=== PATIENT | female | born 1980 | race Two or more races ===

== ENCOUNTER 2018-08-18 08:22 | Day surgery (SDC) | payer OTHER | END 2018-08-18 13:30 | disposition home or self-care (01) | LOC: AMB-ENDOS 08:22 | DX: N82.3 Fistula of vagina to large intestine (principal) ==

== ENCOUNTER → 2022-07-01 08:00 | Outpatient (CLI) | payer OTHER ==
[~2022-07-01] VITALS: Ht 167.6 cm; Wt 68.0 kg
[~2022-07-01 08:00] MED LIST: CIPRO500 MG PO; CLARITIN5 MG PO; FAMOTIDINE40 MG; FLONASE16 GM; INTESTINEX680 M1 PO; LEVOFLOXACIN5 ML; METRONIDAZOLE500 MG PO; MULTIPLE VITAM1 EAC2 PO; ULTRAM50 MG PO
== END | disposition home or self-care (01) ==
LOC: LAB 08:00 → EDSTATUS 07-06 10:30 → SURH 07-06 10:30
PROVIDERS: ATTEND Surgery
DX: I10 Essential (primary) hypertension (principal); N82.3 Fistula of vagina to large intestine; K58.9 Irritable bowel syndrome, unspecified; R15.2 Fecal urgency; Z03.818 Encounter for observation for suspected exposure to other biological agents ruled out; Z20.822 Contact with and (suspected) exposure to COVID-19

== ENCOUNTER 2022-08-19 11:09 | Inpatient (IN) | payer OTHER ==
[~2022-08-19] VITALS: Ht 167.6 cm; Wt 71.7 kg
[~2022-08-19 11:09] MED LIST changes: -LEVOFLOXACIN5 ML
--- NOTE | 2022-08-19 11:24 | NUR ---
PACIENTE ALERTA Y ORIENTADA POR VISHNU. PACIENTE CON REFERIDO DE DRA Daryl BACK POR PROBLEMA EN FISTULA ANOVAGINAL LA CUAL SE ENCUENTRA DRENADO SECRECIONES. REFIERE FUE OPERADA EL .
[2022-08-19] MEDS ORDERED: LEVOFLOXACIN5 ML (11:30)
[2022-08-21] MEDS ORDERED: ULTRAM50 MG PO (13:10)
== END 2022-08-21 16:44 | disposition home or self-care (01) | DRG 331 ==
LOC: ER 11:09 → SURG 13:32 → SURH 13:32
PROVIDERS: ADMIT Surgery; ATTEND Surgery
PROC: 0D1B4Z4 Bypass Ileum to Cutaneous, Percutaneous Endoscopic Approach (ICD-10-PCS; principal; 2022-08-19 15:00)
DX: N82.3 Fistula of vagina to large intestine (principal); N82.4 Other female intestinal-genital tract fistulae; Z20.822 Contact with and (suspected) exposure to COVID-19

== ENCOUNTER 2023-01-20 09:00 | Inpatient (IN) | payer OTHER ==
[~2023-01-20] VITALS: Ht 167.6 cm; Wt 68.0 kg
[~2023-01-20 09:00] MED LIST changes: +LEVOFLOXACIN5 ML
[2023-01-20] MEDS ORDERED: PROBIOTIC1 EAC4 PO (13:40)
[2023-01-20] MEDS ORDERED: MULTI VITAMIN1 EACH PO (13:41)
[2023-01-28] MEDS ORDERED: METRONIDAZOLE500 MG PO (07:52)
[2023-01-28] MEDS ORDERED: CIPRO500 MG PO (07:52)
[2023-01-28] MEDS ORDERED: PROTONIX40 MG PO (07:53)
== END 2023-01-28 10:02 | disposition home or self-care (01) | DRG 348 ==
LOC: EDSTATUS 09:00 → O/R 01-25 06:42 → SURH 01-25 08:30 → CIR.AMB 01-25 08:30 → EDSTATUS 01-25 09:00 → SURH 01-25 09:00
PROVIDERS: ADMIT Surgery; ATTEND Surgery
PROC: 0WQN0ZZ Repair Female Perineum, Open Approach (ICD-10-PCS; 2023-01-25)
PROC: 0DQR0ZZ Repair Anal Sphincter, Open Approach (ICD-10-PCS; 2023-01-25)
PROC: 3E0T3BZ Introduction of Anesthetic Agent into Peripheral Nerves and Plexi, Percutaneous Approach (ICD-10-PCS; 2023-01-25)
PROC: 0DBQ7ZZ Excision of Anus, Via Natural or Artificial Opening (ICD-10-PCS; principal; 2023-01-25 08:30)
DX: K60.3 Anal fistula (principal); N82.8 Other female genital tract fistulae; R15.9 Full incontinence of feces; K58.0 Irritable bowel syndrome with diarrhea; Z93.2 Ileostomy status

== ENCOUNTER 2023-06-23 06:13 | Day surgery (SDC) | payer OTHER ==
[2023-06-21 12:01] LABS: HEMATOCRIT 38.7 % (36.0-45.00); HEMOGLOBIN 12.5 g/dL (12.0-15.00); MEAN CELL VOLUME 90.3 fL (80.00-100.00); MEAN CORPUSCULAR HEMOGLOBIN 29.2 pg (27.00-32.0); MEAN CORPUSCULAR HGB CONC 32.3 g/dl (32.0-36.0); PLATELET COUNT 267 K/uL (150-450); RED BLOOD COUNT 4.28 M/uL (4.00-6.00); RED CELL DISTRIBUTION WIDTH 13.4 % (11.5-14.5)
[2023-06-21 12:29] LABS: INR 1.04; PARTIAL THROMBOPLASTIN TIME 27.8 SECONDS (22.0-34.0); PROTHROMBIN TIME 10.9 SECONDS (9.0-11.5)
[2023-06-21 12:38] LABS: ALBUMIN 3.6 gm/dL (3.4-5.0); BILIRUBIN TOTAL 0.47 mg/dL (0.3-1.2); CALCIUM 8.5 mg/dL (8.5-10.1); CREATININE SERUM 0.54 mg/dL (0.55-1.02); GFR 124.41; GLOBULINA 3.5 G/DL (2.4-3.5); POTASSIUM 4.15 mEq/L (3.5-5.1); TOTAL PROTEIN 7.1 gm/dL (6.4-8.2)
[~2023-06-23] VITALS: Ht 167.6 cm; Wt 70.3 kg
[~2023-06-23 06:13] MED LIST changes: +MULTI VITAMIN1 EACH PO; +PROBIOTIC1 EAC4 PO; +PROTONIX40 MG PO
== END 2023-06-23 17:15 | disposition home or self-care (01) ==
LOC: CIR.AMB 06:13
PROVIDERS: ATTEND Surgery
DX: N82.3 Fistula of vagina to large intestine (principal); K58.0 Irritable bowel syndrome with diarrhea; Z93.3 Colostomy status; I10 Essential (primary) hypertension; Z20.822 Contact with and (suspected) exposure to COVID-19; Z88.0 Allergy status to penicillin; Z88.6 Allergy status to analgesic agent

== ENCOUNTER 2023-11-29 08:30 | Inpatient (IN) | payer OTHER ==
[~2023-11-29] VITALS: Ht 167.6 cm; Wt 72.6 kg
[2023-11-29 11:57] LABS: URINE APPEARANCE Clear; URINE BILIRRUBIN Negative (NEGATIVE); URINE BLOOD Negative; URINE COLOR Yellow; URINE GLUCOSE Negative (NEGATIVE); URINE LEUKOCYTE Negative; URINE NITRATE Negative; URINE PROTEIN Negative (NEGATIVE); URINE UROBILINOGEN 0.2 E.U./dl
[2023-11-29 11:58] LABS: URINE BACTERIA 269.6 uL (0.0-1933); URINE EPITHELIAL CELLS 4.6 uL (0.0-38.8); URINE RBC 7.9 uL (0.0-20.8); URINE WBC 2.3 uL (0.0-23.2)
[2023-11-29 12:02] LABS: HEMATOCRIT 40.5 % (36.0-45.00); HEMOGLOBIN 13.8 g/dL (12.0-15.00); MEAN CELL VOLUME 91.1 fL (80.00-100.00); MEAN CORPUSCULAR HEMOGLOBIN 31.2 pg (27.00-32.0); MEAN CORPUSCULAR HGB CONC 34.2 g/dl (32.0-36.0); PLATELET COUNT 228 K/uL (150-450); RED BLOOD COUNT 4.44 M/uL (4.00-6.00); RED CELL DISTRIBUTION WIDTH 13.4 % (11.5-14.5)
[2023-11-29 12:29] LABS: INR 1.01; PARTIAL THROMBOPLASTIN TIME 29.3 SECONDS (22.0-34.0); PROTHROMBIN TIME 10.6 SECONDS (9.0-11.5)
[2023-11-29 12:33] LABS: ALBUMIN 3.7 gm/dL (3.4-5.0); BILIRUBIN TOTAL 0.45 mg/dL (0.3-1.2); CALCIUM 8.9 mg/dL (8.5-10.1); CREATININE SERUM 0.53 mg/dL (0.55-1.02); GFR 126.51; GLOBULINA 3.6 G/DL (2.4-3.5); POTASSIUM 3.73 mEq/L (3.5-5.1); TOTAL PROTEIN 7.3 gm/dL (6.4-8.2)
[2023-12-06] MEDS ORDERED: METRONIDAZOLE/SODIUM CHLORIDE 500 MG/100 ML PIGGYBACK IV ONE (06:41)
[2023-12-06] MEDS ORDERED: BUPIVACAINE HCL/PF 0.5% 30ML ML ONE (07:32)
[2023-12-06] MEDS ORDERED: LIDOCAINE HCL 1%/Epi 20ML VIAL IJ ONE (07:32)
[2023-12-06] MEDS ORDERED: LORATADINE10 MG (07:34)
[2023-12-06] MEDS ORDERED: PROBIOTIC1 EAC4 PO (07:35)
[2023-12-06] MEDS ORDERED: VITAMIN D310 MC4 PO (07:36)
[2023-12-06] MEDS ORDERED: VITAMIN B-121000 MC4 PO (07:36)
[2023-12-06] MEDS ORDERED: CHLORHEXIDINE GLUCONATE 120 ML BOTTLE TOP ONE ×2 (07:40→08:15)
[2023-12-06] MEDS ORDERED: METRONIDAZOLE/SODIUM CHLORIDE 500 MG/100 ML PIGGYBACK IV SCH (08:15)
[2023-12-06] MEDS ORDERED: levoFLOXacin IN DEXTROSE 5 % 5 MG/ML PIGGYBAG IV SCH (08:15)
[2023-12-06] MEDS ORDERED: RINGERS SOLUTION,LACTATED 1,000 ML IV SCH (09:45)
[2023-12-06] MEDS ORDERED: ONDANSETRON HCL 2 MG/ML VIAL IV PRN (09:45)
[2023-12-06] MEDS ORDERED: MORPHINE SULFATE 4 MG/ML VIAL IV PRN (09:45)
[2023-12-06] MEDS ORDERED: OxyCODONE HCL 5 MG TABLET (ROXICODONE) PO PRN (09:45)
[2023-12-06 11:38] LABS: HEMATOCRIT 38.2 % (36.0-45.00); HEMOGLOBIN 12.9 g/dL (12.0-15.00); MEAN CELL VOLUME 89.8 fL (80.00-100.00); MEAN CORPUSCULAR HEMOGLOBIN 30.3 pg (27.00-32.0); MEAN CORPUSCULAR HGB CONC 33.7 g/dl (32.0-36.0); PLATELET COUNT 202 K/uL (150-450); RED BLOOD COUNT 4.25 M/uL (4.00-6.00)
[2023-12-06] MEDS ORDERED: HYOSCYAMINE SULFATE 0.125 MG TAB.SUBL SL SCH (13:00)
[2023-12-06] MEDS ORDERED: SIMETHICONE 125 MG CAPSULE PO SCH (13:00)
[2023-12-06] MEDS ORDERED: ACETAMINOPHEN 500 MG GEL..CAP PO SCH (14:00)
[2023-12-06] MEDS ORDERED: GABAPENTIN 300 MG CAPSULE PO SCH (17:00)
[2023-12-06] MEDS ORDERED: METOCLOPRAMIDE HCL 5 MG/ML VIAL IV SCH (17:00)
[2023-12-06] MEDS ORDERED: POLYETHYLENE GLYCOL 3350 17 GM BLIST.PACK PO SCH (17:00)
[2023-12-06] MEDS ORDERED: FAMOTIDINE/PF 20 MG/2 ML VIAL IV PUSH SCH (21:00)
[2023-12-07 07:31] LABS: HEMATOCRIT 36.1 % (36.0-45.00); HEMOGLOBIN 12.3 g/dL (12.0-15.00); MEAN CELL VOLUME 88.6 fL (80.00-100.00); MEAN CORPUSCULAR HEMOGLOBIN 30.3 pg (27.00-32.0); MEAN CORPUSCULAR HGB CONC 34.1 g/dl (32.0-36.0); PLATELET COUNT 213 K/uL (150-450); RED BLOOD COUNT 4.08 M/uL (4.00-6.00); RED CELL DISTRIBUTION WIDTH 13.4 % (11.5-14.5)
[2023-12-07 08:01] LABS: ALBUMIN 2.9 gm/dL (3.4-5.0); CALCIUM 8.1 mg/dL (8.5-10.1); CREATININE SERUM 0.49 mg/dL (0.55-1.02); GFR 138.5; MAGNESIUM 2.3 mg/dL (1.8-2.4); PHOSPHOROUS 2.8 mg/dL (2.5-4.9); POTASSIUM 3.61 mEq/L (3.5-5.1)
[2023-12-07] MEDS ORDERED: LACTOBACILLUS ACIDOPHILUS 1 CAP CAP PO SCH (09:00)
[2023-12-07] MEDS ORDERED: ENOXAPARIN SODIUM 40 MG/0.4 ML SYRINGE SUBCUTANEO SCH (17:00)
[2023-12-08] MEDS ORDERED: ENOXAPARIN SODIUM 40 MG/0.4 ML SYRINGE SUBCUTANEO SCH (09:00)
[2023-12-09] MEDS ORDERED: ACETAMINOPHEN 500 MG GEL..CAP PO SCH (06:00)
[2023-12-09] MEDS ORDERED: LOPERAMIDE HCL 2 MG CAPSULE PO ONE (07:30)
[2023-12-09] MEDS ORDERED: CHOLESTYRAMINE/ASPARTAME LIGHT 4 G/PKT PACKET PO STA (07:55)
[2023-12-09] MEDS ORDERED: HYOSCYAMINE0.125 M1 SL (07:55)
[2023-12-09] MEDS ORDERED: GABAPENTIN300 MG PO (07:56)
[2023-12-09] MEDS ORDERED: QUESTRAN PACKET4 GM PO (07:56)
[2023-12-09] MEDS ORDERED: INTESTINEX680 M1 PO (07:56)
[2023-12-09] MEDS ORDERED: GABAPENTIN 300 MG CAPSULE PO SCH (13:00)
== END 2023-12-09 09:47 | disposition home or self-care (01) | DRG 330 ==
LOC: O/R 12-06 05:40 → OB/GYN 12-06 05:40 → SURG 12-06 07:00 → OB/GYN 12-06 10:00
PROVIDERS: ADMIT Surgery; ATTEND Surgery
PROC: 0DQB4ZZ Repair Ileum, Percutaneous Endoscopic Approach (ICD-10-PCS; principal; 2023-12-06 07:00)
DX: Z43.2 Encounter for attention to ileostomy (principal); N82.3 Fistula of vagina to large intestine; K58.0 Irritable bowel syndrome with diarrhea